=== PATIENT | male | born 1960 | race Caucasian/White ===

== ENCOUNTER → 2016-08-06 | Outpatient (CLI) | payer OTHER, SELFPAY | LOC: CT 13:01 | DX: C19 Malignant neoplasm of rectosigmoid junction (principal); R19.8 Other specified symptoms and signs involving the digestive system and abdomen | CPT/HCPCS: 71260; J7050; Q9962 ==

== ENCOUNTER 2020-08-02 14:59 | Emergency (ER) | payer OTHER ==
[2020-08-02 16:04] LABS: HEMOGLOBIN 15.8 gm/dl (14.0-17.5); RED BLOOD COUNT 5.15 M/UL (4.20-5.50); WHITE BLOOD COUNT 5.9 K/UL (4.5-11.0)
[2020-08-02 16:25] LABS: BUN/CREATININE RATIO 11 (0-10)
== END 2020-08-02 16:45 | disposition home or self-care (01) ==
LOC: ER1 14:59
PROVIDERS: Student in an Organized Health Care Education/Training Program
DX: R07.9 Chest pain, unspecified (principal); F17.210 Nicotine dependence, cigarettes, uncomplicated; Z79.899 Other long term (current) drug therapy; Z86.16 Personal history of COVID-19
CPT/HCPCS: 36600; 71045; 80053; 82550; 82553; 82803; 83690; 83874; 84484; 85025; 93005; 99285

== ENCOUNTER 2021-05-31 17:12 | Emergency (ER) | payer OTHER ==
[2021-05-31 18:07] LABS: HEMOGLOBIN 16.9 gm/dl (14.0-17.5); RED BLOOD COUNT 5.49 M/UL (4.20-5.50); WHITE BLOOD COUNT 6.4 K/UL (4.5-11.0)
[2021-05-31 18:33] LABS: BUN/CREATININE RATIO 7 (0-10)
[2021-05-31] MEDS ORDERED: BENTYL 20MG TAB20 MG PO (23:11)
[2021-05-31] MEDS ORDERED: ZOFRAN ODT 4 MG4 MG SL (23:12)
[2021-06-01] MEDS ORDERED: GOLYTELY 40004000 ML PO (13:40)
== END 2021-05-31 23:23 | disposition home or self-care (01) ==
LOC: ER1 17:12
PROVIDERS: Emergency Medicine
DX: K59.00 Constipation, unspecified (principal); F17.200 Nicotine dependence, unspecified, uncomplicated; Z85.118 Personal history of other malignant neoplasm of bronchus and lung
CPT/HCPCS: 80053; 83690; 85025; 96374; 96375; 96376; 99284; J1170; J2270; J2405; Q9967

== ENCOUNTER 2021-06-01 12:10 | Emergency (ER) | payer OTHER ==
[~2021-06-01 12:10] MED LIST: BENTYL 20MG TAB20 MG PO; ZOFRAN ODT 4 MG4 MG SL
[2021-06-01] MEDS ORDERED: GOLYTELY 40004000 ML PO (13:40)
[2021-06-01 14:08] LABS: HEMOGLOBIN 17.4 gm/dl (14.0-17.5); RED BLOOD COUNT 5.38 M/UL (4.20-5.50)
[2021-06-01 14:11] LABS: WHITE BLOOD COUNT 9.5 K/UL (4.5-11.0)
[2021-06-01 14:30] LABS: BUN/CREATININE RATIO 8 (0-10)
== END 2021-06-01 17:00 | disposition home or self-care (01) ==
LOC: ER1 12:10
PROVIDERS: Emergency Medicine
DX: K59.00 Constipation, unspecified (principal); F11.90 Opioid use, unspecified, uncomplicated
CPT/HCPCS: 74018; 80053; 83690; 85025; 99284

== ENCOUNTER → 2021-12-13 | Outpatient (CLI) | payer OTHER ==
[~2021-12-13] MED LIST changes: +GOLYTELY 40004000 ML PO
== END ==
LOC: HEART 5 14:01
DX: J44.9 Chronic obstructive pulmonary disease, unspecified (principal)
CPT/HCPCS: 94060; 94729